=== PATIENT | female | born 1960 | race African-American/Black ===

== ENCOUNTER 2016-08-28 16:28 | Emergency (ER) | payer OTHER ==
[~2016-08-28] VITALS: Ht 175.3 cm; Wt 115.2 kg
[~2016-08-28 16:28] MED LIST: ALBUTEROL SULF8.5 GM INH; AZITHROMYCIN250 MG ORAL; BENADRYL50 MG ORAL; CYCLOBENZAPRINE10 MG ORAL; IBUPROFEN600 MG ORAL; PROMETHAZINE-C118 M1 ORAL
[2016-08-28] MEDS ORDERED: Metoclopramide 10mg/2ml Inj IVP ONE (17:45)
[2016-08-28 18:01] LABS: BASOPHILS % (AUTO) 1.5 % (0.0-2.0); EOSINOPHILS % (AUTO) 1.3 % (0.0-3.0); LYMPHOCYTES % (AUTO) 18.8 % (20.0-45.0); MEAN CORPUSCULAR VOLUME 91 FL (80-99); MEAN PLATELET VOLUME 5.5 FL (6.5-10.1); MONOCYTES % (AUTO) 9.8 % (1.0-10.0); NEUTROPHILS % (AUTO) 68.6 % (45.0-75.0); PLATELET COUNT 194 K/UL (150-450); RED BLOOD COUNT 3.89 M/UL (4.20-5.40); RED CELL DISTRIBUTION WIDTH 11.9 % (11.6-14.8); WHITE BLOOD COUNT 4.4 K/UL (4.8-10.8)
[2016-08-28 18:38] LABS: ALANINE AMINOTRANSFERASE 17 U/L (3-33); ALBUMIN/GLOBULIN RATIO 1.4 (1.0-2.7); ANION GAP 11 (5-15); ASPARTATE AMINO TRANSFERASE 20 U/L (5-40); CALCIUM 8.5 mg/dL (8.6-10.2); CARBON DIOXIDE 25 mEQ/L (20-30); CHLORIDE 106 mEQ/L (98-107); CREATININE 0.7 mg/dL (0.5-0.9); GLOMERULAR FILTRATION RATE > 60 mL/min (>60); HEMOLYSIS 5; POTASSIUM 3.8 mEQ/L (3.4-4.9); SODIUM 142 mEQ/L (135-145); TOTAL PROTEIN 6.6 g/dL (6.6-8.7)
[2016-08-28 19:10] LABS: TROPONIN I < 0.30 ng/mL (<=0.30)
[2016-08-28] MEDS ORDERED: ACETAMINOPHEN-1 EAC1 ORAL (20:00)
[2016-08-28] MEDS ORDERED: Ketorolac 30mg Inj IV ONE (20:00)
[2016-08-28] MEDS ORDERED: VENTOLIN HFA18 GM INH (20:00)
[2016-08-28 20:37] VITALS: BP 119/80
[2016-08-28 20:40] VITALS: BP 119/80
--- NOTE | 2016-08-29 10:11 | Diagnostic Imaging Report ---
Indication: PAIN Technique: Continuous helical CT scanning of the head was performed without intravenous contrast material. Axial and coronal 5 mm sections were generated. Radiation dose was minimized using automated exposure control Dose: Total Dose Length Product - DLP [address] Dose Index - CTDIvol(s) 70.38 mGy. Comparison: None Findings: The ventricular system is normal in size and configuration. There is no shift of midline structures. No abnormal extra-axial fluid collections are noted. There is no evidence of intracerebral bleeding. No other abnormal high or low density areas are noted within the brain. There is minimal scalp soft tissue swelling at the vertex. Impression: Normal CT scan of the head without contrast material. Minimal scalp soft tissue swelling at the vertex, correlate with any history of trauma The CT scanner at [facility] is accredited by the [employer] and the scans are performed using protocols designed to limit radiation exposure to as low as reasonably achievable to attain images of sufficient resolution adequate for diagnostic evaluation.
--- NOTE | 2016-08-29 14:17 | Cardiology Report ---
APPROVED REPORT EKG Measurement Heart [id number] Normal sinus rhythm Low voltage QRS Borderline ECG
--- NOTE | 2016-08-30 08:17 | Diagnostic Imaging Report ---
Indication: PAIN Technique: One view of the chest Comparison: none Findings: Body habitus limits evaluation. Lungs and pleural spaces are grossly clear. Heart size is borderline enlarged. Impression: Borderline cardiomegaly. No acute process
--- NOTE | 2016-08-31 06:59 | Emergency Room Report ---
History of Present Illness General Chief Complaint: Headache Source: Patient Present Illness HPI 56 YO F presents with 2 complaints: 1) Intermittent frontal headache "around eyes" for 2-3 days. Comes/goes. Improved with OTC meds. +history of migraines. Denies assoc fever/chills, neck pain/stiffness, sick contacts, history of SAH, tumor. No pain with EOMI, blurry/change of vision, nausea/vomiting. 2) Cough for 1 month. Non productive. + sick contacts. Denies fever/chills, chest pain, SOB. Denies asthma, smoking. Allergies: Coded Allergies: No Known Allergies (Verified Allergy, Unknown, 01/26/11) Patient History Past Medical History: migraines Past Surgical History: none Pertinent Family History: none Social History: Denies: alcohol use, drug use, smoking Now: No Immunizations: UTD Reviewed Nursing Documentation: PMH: Agreed, PSxH: Agreed Nursing Documentation-PMH Hx Diabetes: Yes Review of Systems All Other Systems: negative except mentioned in HPI Physical Exam Vital Signs Date Time Temp Pulse Resp B/P Pulse Ox O2 Delivery O2 Flow Rate FiO2 08/28/16 17:13 98.2 83 15 124/83 95 Room Air Sp02 EP Interpretation: reviewed, normal General Appearance: normal inspection, well appearing, no apparent distress, alert, GCS 15, non-toxic Head: normocephalic, atraumatic Eyes: bilateral eye EOMI, bilateral eye PERRL ENT: normal ENT inspection, hearing grossly normal, normal voice Neck: normal inspection, full range of motion, supple, no meningismus, no bony tend Respiratory: normal inspection, lungs clear, normal breath sounds, no rhonchi, no respiratory distress, no retraction, no accessory muscle use, no wheezing Cardiovascular #1: regular rate, rhythm, no edema Gastrointestinal: normal inspection, normal bowel sounds, non tender, soft, no guarding, no hernia Genitourinary: no CVA tenderness Musculoskeletal: normal inspection, back normal, normal range of motion, Danielle' s Sign negative Neurologic: normal inspection, alert, oriented x3, responsive, canvas repairer III-XII nml as tested, motor strength/tone normal, speech normal Psychiatric: normal inspection, judgement/insight normal, mood/affect normal Skin: normal inspection, normal color, no rash Medical Decision Making Diagnostic Impression: Primary Impression: Headache Qualified Codes: G44.229 - Chronic tension-type headache, not intractable Additional Impression: Bronchitis ER Course 56 YO F with headache for 2-3 days. Likely migraine vs tension type. Low suspicion for meningitis or SAH given well appearance, fluctuating quality, no focal neuro deficits. VSS. Afebrile. CT head negative for mass. Labs: No leuks. Feels better after Reglan/IVF/Toradol. Cough likely bronchitis. CXR negative for PNA. No fever/leuks. Will Rx with T #3 and inhaler. PMD followup recommended DC home EKG Diagnostic Results Rate: normal Rhythm: NSR ST Segments: no acute changes ASA given to the pt in ED: No Rhythm Strip Diag. Results EP Interpretation: yes Rate: 70 Rhythm: NSR, no PVC's, no ectopy Chest X-Ray Diagnostic Results EP Interpretation: Yes Findings: no consolidation, no effusion, no pneumothorax, no acute cardiopulmonary disease Number of Views: 1 Last Vital Signs Date Time Temp Pulse Resp B/P Pulse Ox O2 Delivery O2 Flow Rate FiO2 08/28/16 20:40 98.4 74 14 119/80 100 Room Air Status: improved Disposition: HOME, SELF-CARE Condition: Improved Scripts Albuterol Sulfate (VENTOLIN HFA) 18 Gm Hfa.aer.ad 2 PUFFS INH EVERY 6 HOURS, #18 GM 0 Refills Prov: CARRIE AMBRIZ M.D. 08/28/16 Acetaminophen With Codeine (T#3) (TYLENOL #3 TAB*) Y Tab 1 TAB ORAL Q8H Y for For Pain, #30 TAB Prov: CARRIE AMBRIZ M.D. 08/28/16 Patient Instructions: Tension Headache, Migraine Headache Additional Instructions: - Take Tylenol #3 as needed for headache/cough at night - Use albuterol inhaler to treat cough during the day - If no improvement in 2-3 days return to ER - Follow up with your primary care doctor for Neurology referral for concern for migraines CARRIE AMBRIZ M.D. Aug 31, 2016 06:59
== END 2016-08-28 20:40 | disposition home or self-care (01) ==
LOC: EMR 17:45
DX: G44.229 Chronic tension-type headache, not intractable (principal); J20.9 Acute bronchitis, unspecified; E11.9 Type 2 diabetes mellitus without complications
CPT/HCPCS: 36415; 70450; 71010; 80053; 84484; 85025; 93005; 96361; 96374; 96375; 99284; J1885; J2765

== ENCOUNTER 2016-10-04 14:56 | Emergency (ER) | payer OTHER ==
[~2016-10-04] VITALS: Ht 172.7 cm; Wt 115.2 kg
[~2016-10-04 14:56] MED LIST changes: +ACETAMINOPHEN-1 EAC1 ORAL; +VENTOLIN HFA18 GM INH
--- NOTE | 2016-10-04 16:52 | Emergency Room Report ---
History of Present Illness General Chief Complaint: Sore Throat Source: Patient Present Illness HPI 56-year-old female presents to emergency Department complaining of sore throat rated as 8/10 in severity in addition to nasal congestion, left ear pain, intermittent headaches while coughing and increase in phlegm x2 days. Patient states she visited a friend at a local ER and believes that she picked up an infection. She denies fevers or chills patient denies nausea vomiting abdominal pain or rashes. denies neck pain or stiffness. pt. reports generalized body aches. Denies CP, Palpitations, LOC, AMS, dizziness, Changes in Vision, Sensation, paresthesias, or a sudden severe headache. Allergies: Coded Allergies: No Known Allergies (Verified Allergy, Unknown, 01/26/11) Patient History Past Medical History: see triage record Past Surgical History: none Pertinent Family History: none Now: No Immunizations: UTD Reviewed Nursing Documentation: PMH: Agreed, PSxH: Agreed Nursing Documentation-PMH Past Medical History: No Stated History Hx Diabetes: Yes Review of Systems All Other Systems: negative except mentioned in HPI Physical Exam Vital Signs Date Time Temp Pulse Resp B/P Pulse Ox O2 Delivery O2 Flow Rate FiO2 10/04/16 15:22 98.4 79 14 112/72 97 Room Air Sp02 EP Interpretation: reviewed, normal General Appearance: no apparent distress, alert, GCS 15, non-toxic Head: normocephalic, atraumatic Eyes: bilateral eye PERRL, bilateral eye normal inspection ENT: hearing grossly normal, normal pharynx, no angioedema, normal voice, TMs + canals normal, uvula midline, moist mucus membranes, nasal congestion - clear rhinorrhea, pharyngeal erythema Neck: full range of motion, no meningismus, no bony tend, supple/symm/no masses Respiratory: chest non-tender, lungs clear, normal breath sounds, no respiratory distress, no accessory muscle use, no wheezing, speaking full sentences Cardiovascular #1: regular rate, rhythm, no edema, normal capillary refill Musculoskeletal: back normal, gait/station normal, normal range of motion, non- tender Neurologic: alert, oriented x3, responsive, motor strength/tone normal, sensory intact, speech normal Psychiatric: judgement/insight normal, memory normal, mood/affect normal, no suicidal/homicidal ideation Skin: normal color, no rash, warm/dry, well hydrated Lymphatic: no adenopathy Medical Decision Making PA Attestation Dr. Mckeon is my supervising Physician whom patient management has been discussed with. Diagnostic Impression: Primary Impression: Upper respiratory infection, viral Additional Impression: Post-nasal drainage ER Course 56-year-old female presents to emergency Department complaining of sore throat rated as 8/10 in severity in addition to nasal congestion, left ear pain, intermittent headaches while coughing and increase in phlegm x2 days. Patient states she visited a friend at a local ER and believes that she picked up an infection. She denies fevers or chills patient denies nausea vomiting abdominal pain or rashes. Ddx considered but are not limited to URI, pneumonia, PE, strep pharyngitis, meningitis. Vital signs: Pt. is afebrile, the remaining VS are WNL H&PE are most consistent with URI- no meningeal signs, oropharynx is not involved, no evidence of bacterial infection at this time. ORDERS: none required at this time, the diagnosis is clinical. ED INTERVENTIONS: -20ml Viscous Lidocaine PO --PT. EDUCATION: Discussed antibiotic resistance with inappropriate prescribing of antibiotics for viral illnesses. Discussed signs and symptoms to indicate viral illness versus bacterial illness. DISCHARGE: At this time pt. is stable for d/c to home. Will provide printed patient care instructions, and any necessary prescriptions. Care plan and follow up instructions have been discussed with the patient prior to discharge. Last Vital Signs Date Time Temp Pulse Resp B/P Pulse Ox O2 Delivery O2 Flow Rate FiO2 10/04/16 15:22 98.4 79 14 112/72 97 Room Air Disposition: HOME, SELF-CARE Condition: Stable Scripts Lidocaine HCl (Lidocaine HCl Viscous) 100 Ml Solution 10 ML PO QID, #120 ML Prov: Ilana Mcdonnell P.A. 10/04/16 Mometasone Furoate (NASONEX) 17 Gm [place].pump 2 SPRAYS NASAL DAILY, #17 GM 0 Refills Prov: Ilana Mcdonnell P.A. 10/04/16 D-Methorphan Hb/Prometh Hcl* (PROMETHAZINE-DM SYRUP*) 118 Ml Syrup 5 ML ORAL Q6H Y for For Cough, #118 ML 0 Refills Prov: Ilana Mcdonnell P.A. 10/04/16 Loratadine (CLARITIN) 10 Mg Capsule 10 MG ORAL DAILY for 14 Days, #14 CAP Prov: Ilana Mcdonnell 10/04/16 Pseudoephedrine Hcl* (NEXAFED*) 30 Mg Tablet 30 MG ORAL Q6H Y for congestion for 5 Days, #20 TAB Prov: Ilana Mcdonnell 10/04/16 Referrals: Ada HERNÁNDEZ,REFERRING (PCP) Patient Instructions: Upper Respiratory Infection, Adult Additional Instructions: Take medications as directed. Follow up with PCP in 3-5 days Return sooner to ED if new symptoms occur, or current symptoms become worse. - Please note that this Emergency Department Report was dictated using UXFLIPtassel maker technology software, occasionally this can lead to erroneous entry secondary to interpretation by the dictation equipment. Ilana Mcdonnell Oct 04, 2016 16:52
[2016-10-04] MEDS ORDERED: PROMETHAZINE-D118 ML ORAL (17:03)
[2016-10-04] MEDS ORDERED: NEXAFED30 MG ORAL (17:03)
[2016-10-04] MEDS ORDERED: NASONEX17 GM NASAL (17:03)
[2016-10-04] MEDS ORDERED: CLARITIN10 M2 ORAL (17:03)
[2016-10-04] MEDS ORDERED: LIDOCAINE VISCO20 ML PO (17:22)
[2016-10-04] MEDS ORDERED: Lidocaine 2% Visc 15ml soln ORAL ONE (17:30)
[2016-10-04 17:45] VITALS: BP 109/69
== END 2016-10-04 17:45 | disposition home or self-care (01) ==
LOC: EMR 16:00
DX: J06.9 Acute upper respiratory infection, unspecified (principal); E11.9 Type 2 diabetes mellitus without complications
CPT/HCPCS: 99284

== ENCOUNTER 2016-12-26 11:53 | Emergency (ER) | payer OTHER ==
[~2016-12-26] VITALS: Ht 172.7 cm; Wt 113.4 kg
[~2016-12-26 11:53] MED LIST changes: +CLARITIN10 M2 ORAL; +LIDOCAINE VISCO20 ML PO; +NASONEX17 GM NASAL; +NEXAFED30 MG ORAL; +PROMETHAZINE-D118 ML ORAL
[2016-12-26 12:25] VITALS: BP 121/83
[2016-12-26] MEDS ORDERED: Fluorescein Strips BOTH EYES ONE (12:45)
[2016-12-26] MEDS ORDERED: Proparacaine 0.5% Opth Soln 15ml BOTH EYES ONE (12:45)
[2016-12-26] MEDS ORDERED: OCUFLOX5 ML OP (13:39)
[2016-12-26] MEDS ORDERED: IBUPROFEN600 MG ORAL (13:39)
[2016-12-26 13:50] VITALS: BP 110/96
--- NOTE | 2016-12-26 21:44 | Emergency Room Report ---
History of Present Illness General Chief Complaint: Eye Problems Source: Patient Present Illness HPI The patient is a 56-year-old female presenting with bilateral eye pain for the past 2 days. She states the pain began after sleeping with contacts in. She describes pain as a burning sensation rated as 10 out of 10. Pain does not radiate. She has noticed crusting of both eyelids in the mornings. She denies green-yellow discharge. She denies changes in vision. She denies other symptoms including nausea, vomiting, fever, chills, dizziness Allergies: Coded Allergies: No Known Allergies (Verified Allergy, Unknown, 01/26/11) Patient History Past Medical History: see triage record Pertinent Family History: none Now: No Reviewed Nursing Documentation: PMH: Agreed, PSxH: Agreed Nursing Documentation-PMH Hx Diabetes: Yes Review of Systems All Other Systems: negative except mentioned in HPI Physical Exam Vital Signs Date Time Temp Pulse Resp B/P Pulse Ox O2 Delivery O2 Flow Rate FiO2 12/26/16 12:16 97.9 82 15 121/83 95 Room Air Sp02 EP Interpretation: reviewed, normal General Appearance: no apparent distress, alert, GCS 15, non-toxic Head: normocephalic, atraumatic Eyes: bilateral eye EOMI, bilateral eye PERRL, bilateral eye Scleral Injection ENT: hearing grossly normal, normal pharynx, no angioedema, normal voice, uvula midline Neck: full range of motion, supple/symm/no masses Musculoskeletal: back normal, gait/station normal, normal range of motion, non- tender Neurologic: alert, oriented x3, responsive, motor strength/tone normal, sensory intact, speech normal Psychiatric: judgement/insight normal, memory normal, mood/affect normal, no suicidal/homicidal ideation Skin: normal color, no rash, warm/dry, well hydrated Lymphatic: no adenopathy Medical Decision Making PA Attestation Dr. Lake is my supervising physician. Patient management was discussed with my supervising physician Diagnostic Impression: Primary Impression: Bacterial conjunctivitis ER Course The patient is a 56-year-old female presenting with bilateral eye pain for the past 2 days Differential diagnoses considered but not limited to corneal abrasion, allergic conjunctivitis, bacterial conjunctivitis, viral conjunctivitis, blepharitis, hordeolum PE: NAD HEENT exam: There is bilateral conjunctival injection with increased tearing. Yellow crusting to medial canthus. PERRL. EOMI. Proparacaine was applied to both eyes and then fluoroscene strip was applied to bottom internal eyelid. UV light was used to assess for increased uptake. None was found. The patient will be discharged home and is to followup with screening specialist as soon as possible. She is given a prescription for ofloxacin. ER precautions given Last Vital Signs Date Time Temp Pulse Resp B/P Pulse Ox O2 Delivery O2 Flow Rate FiO2 12/26/16 13:50 98 18 110/96 96 Room Air 12/26/16 12:25 97.9 Status: improved Disposition: HOME, SELF-CARE Condition: Improved Scripts Ofloxacin (OCUFLOX) 5 Ml Drops 2 DROP OP QID for 7 Days, #5 ML Prov: KEM HUERTA 12/26/16 Ibuprofen* (MOTRIN*) 600 Mg Tablet 600 MG ORAL Q8H Y for For Pain, #30 TAB 0 Refills Prov: KEM HUERTA 12/26/16 Patient Instructions: Bacterial Conjunctivitis Additional Instructions: I discussed my findings with the patient. All questions and concerns have been answered. Treatment and medication compliance have been addressed. I advised the patient that they need to follow up with PMD in 3-5 days. Return to ED if symptoms worsen, new symptoms arise, or if needed for any reason. Patient verbalized understanding of discharge instructions. The patient will follow up with screening specialist as soon as possible as was discussed KEM HUERTA December 26, 2016 21:44
== END 2016-12-26 13:50 | disposition home or self-care (01) ==
LOC: EMR 12:33
DX: H10.9 Unspecified conjunctivitis (principal); B96.89 Other specified bacterial agents as the cause of diseases classified elsewhere; E11.9 Type 2 diabetes mellitus without complications
CPT/HCPCS: 99284

== ENCOUNTER 2017-02-06 19:06 | Emergency (ER) | payer OTHER ==
[~2017-02-06] VITALS: Ht 172.7 cm; Wt 111.1 kg
[~2017-02-06 19:06] MED LIST changes: +OCUFLOX5 ML OP
[2017-02-06] MEDS ORDERED: NKM (19:16)
[2017-02-06 19:36] VITALS: BP 125/86
--- NOTE | 2017-02-06 19:42 | Emergency Room Report ---
History of Present Illness General Chief Complaint: Toothache Source: Patient Present Illness HPI 56 YO Female presents for 10/10 in severity left sided upper jaw pain, swelling tenderness, x 2 days with swelling progressing to the left cheek x 1 day. denies fevers or chills. reports having broken tooth of the upper jaw.Pt states swelling progressed mostly today. denies having a dentist which is why she has been putting off having tooth pulled. Pt states she also has a headache due to the pain swelling in the mouth, pt. describes KELLER as 5/10 in severity progressive and dull/ache. Denies CP, Palpitations, LOC, AMS, dizziness, Changes in Vision, Sensation, paresthesias, or a sudden severe headache. Allergies: Coded Allergies: No Known Allergies (Verified , 02/06/17) Patient History Past Medical History: see triage record Pertinent Family History: none Last Menstrual Period: n/a Now: No Reviewed Nursing Documentation: PMH: Agreed, PSxH: Agreed Nursing Documentation-PMH Past Medical History: No History, Except For Review of Systems All Other Systems: negative except mentioned in HPI Physical Exam Vital Signs Date Time Temp Pulse Resp B/P Pulse Ox O2 Delivery O2 Flow Rate FiO2 02/06/17 19:11 98.6 87 16 125/82 96 Room Air Sp02 EP Interpretation: reviewed, normal General Appearance: no apparent distress, alert, GCS 15, non-toxic Head: normocephalic, atraumatic Eyes: bilateral eye PERRL, bilateral eye normal inspection ENT: hearing grossly normal, normal pharynx, no angioedema, normal voice, TMs + canals normal, uvula midline, moist mucus membranes, other - gum abscess due to palpable fluctuance 1 cm approximated palpated above tooth number 13 in the left upper jaw, there is notable swelling to the adjacent cheek, no stones palpated. Neck: full range of motion, supple/symm/no masses Respiratory: lungs clear, normal breath sounds, speaking full sentences Cardiovascular #1: regular rate, rhythm, no edema Musculoskeletal: back normal, gait/station normal, normal range of motion, non- tender Neurologic: alert, oriented x3, responsive, motor strength/tone normal, sensory intact, speech normal Psychiatric: judgement/insight normal, memory normal, mood/affect normal Skin: normal color, no rash, warm/dry, well hydrated, other - swelling noted to the left upper cheek. Lymphatic: no adenopathy Procedures Incision and Drainage Incision and Drainage : Consent: Verbal Site: left upper gumline Blade Size: 11 Wound Location: other - mouth/ left upper gumline Wound's Depth, Shape: superficial Wound Length (cm): 1 Wound Explored: contaminated - purulence and blood Irrigated w/ Saline (ccs): 500 Anesthesia: other - hurricaine 20% spray Splint Applied?: No Sling Applied?: No Patient Tolerated: Well Complications: None Medical Decision Making PA Attestation Dr. yost is my supervising Physician whom patient management has been discussed with. Diagnostic Impression: Primary Impression: Gum abscess Additional Impression: Dental infection ER Course Pt. presents to the ED c/o : Tooth pain, swelling and tenderness x 2 days Ddx considered but are not limited to:tooth abscess, tooth avulsion, OPERATIONS PROGRAM MANAGER, [place] angina, cellulitis Vital signs: are WNL, pt. is afebrile H&PE are most consistent with: Tooth infection, gum abscess due to palpable fluctuance ORDERS: -[place] PO -Augmentin PO -Hurricaine 20% anesthetic spray ED INTERVENTIONS: - I & D DISCHARGE: At this time pt. is stable for d/c to home. Will provide printed patient care instructions, and any necessary prescriptions. Care plan and follow up instructions have been discussed with the patient prior to discharge. Last Vital Signs Date Time Temp Pulse Resp B/P Pulse Ox O2 Delivery O2 Flow Rate FiO2 02/06/17 19:36 98.6 87 16 125/86 96 Room Air Disposition: HOME, SELF-CARE Condition: Stable Scripts Ibuprofen* (MOTRIN*) 600 Mg Tablet 600 MG ORAL THREE TIMES A DAY, #30 TAB 0 Refills Prov: Ilana Mcdonnell P.A. 02/06/17 Hydrocodone Bit/Acetaminophen 7.5-325* (NORCO 7.5-325*) 1 Each Tablet 1 TAB ORAL Q6H Y for For Pain, #10 TAB 0 Refills Prov: Ilana Mcdonnell P.A. 02/06/17 Amoxicillin/Potassium Clav 875-125* (AUGMENTIN 875-125 TABLET*) 1 Each Tablet 1 TAB ORAL TWICE A DAY for 7 Days, #14 TAB Prov: Ilana Mcdonnell P.A. 02/06/17 Referrals: H JEAN HERNÁNDEZ,REFERRING (PCP) Patient Instructions: Dental Abscess, [id number], Dental Pain Additional Instructions: Take medications as directed. Follow up with a Dentist in 2 days, even if your symptoms have resolved. * * --Please review list of dental clinics, if you do not already have a dentist Return sooner to ED if new symptoms occur, or current symptoms become worse. Do not drink alcohol, drive, or operate heavy machinery while taking [place] as this may cause drowsiness. - Please note that this Emergency Department Report was dictated using [employer] buncher technology software, occasionally this can lead to erroneous entry secondary to interpretation by the dictation equipment. Ilana Mcdonnell Feb 06, 2017 19:42
[2017-02-06] MEDS ORDERED: Hydrogen Peroxide 473ml Bottle TOPIC ONE (20:00)
[2017-02-06] MEDS ORDERED: Hurricaine 20% Spray ORO ONE (20:00)
[2017-02-06] MEDS ORDERED: Norco 7.5mg/325mg tab ORAL ONE (20:00)
[2017-02-06] MEDS ORDERED: Augmentin 875mg Tab ORAL ONE (20:15)
[2017-02-06] MEDS ORDERED: NORCO 7.5-3251 EACH ORAL (20:50)
[2017-02-06] MEDS ORDERED: AUGMENTIN 875-1 EAC1 ORAL (20:50)
[2017-02-06] MEDS ORDERED: IBUPROFEN600 MG ORAL (20:50)
[2017-02-06 21:20] VITALS: BP 131/75
== END 2017-02-06 21:20 | disposition home or self-care (01) ==
LOC: EMR 19:25
DX: K05.219 Aggressive periodontitis, localized, unspecified severity (principal); K04.7 Periapical abscess without sinus
CPT/HCPCS: 99284

== ENCOUNTER 2017-10-18 15:11 | Emergency (ER) | payer OTHER ==
[~2017-10-18] VITALS: Ht 175.3 cm; Wt 113.4 kg
[~2017-10-18 15:11] MED LIST changes: +AUGMENTIN 875-1 EAC1 ORAL; +NKM; +NORCO 7.5-3251 EACH ORAL
--- NOTE | 2017-10-18 15:25 | Emergency Room Report ---
History of Present Illness General Chief Complaint: General Complaint Source: Patient, Medical Record Present Illness HPI 57 yo female patient presents to ER complaining of ingrown fingernail and eye irritation. Reports light sensitivity x1week. Patient reports has prescription for glasses, does not wear glasses; reports wearing contact lenses, not prescription. Reports crusting of eyes in the morning; reports crusting yellow. Reports FB sensation. Denies pain with eye movement. Denies mooney in eyes. Also complains of KELLER, denies nausea, vomiting. Reports symptoms present for 2 weeks, intermittently. Also complains of ingrown nail. Reports nail biting. Reports symptoms since Saturday; reports nail draining pus. Reports TTP. Reports seen by "nail lady" who helped remove some pus; was instructed to come to ER for further treatment. Denies fever, chest pain, SOB, tinnitus, ear pain, vision loss, curtain coming down over eyes. Allergies: Coded Allergies: No Known Allergies (Verified , 02/06/17) Patient History Past Medical History: see triage record Reviewed Nursing Documentation: PMH: Agreed; PSxH: Agreed Nursing Documentation-PMH Past Medical History: No History, Except For Hx Diabetes: Yes Review of Systems All Other Systems: negative except mentioned in HPI Physical Exam Vital Signs Date Time Temp Pulse Resp B/P (MAP) Pulse Ox O2 Delivery O2 Flow Rate FiO2 10/18/17 15:18 98.8 90 18 122/82 95 Room Air 98.8 Sp02 EP Interpretation: reviewed, normal General Appearance: well appearing, no apparent distress, alert, GCS 15, non- toxic Head: normocephalic, atraumatic Eyes: bilateral eye normal inspection, bilateral eye PERRL, bilateral eye fluoroscene uptake - left eye: 3-4mm uptake in 8 o'clock position; right eye: 3- 4mm uptake in 4 o'clock position ENT: hearing grossly normal, normal pharynx, no angioedema, normal voice, TMs + canals normal, uvula midline, moist mucus membranes Neck: full range of motion, no bony tend Respiratory: lungs clear, normal breath sounds, no rhonchi, no respiratory distress, no accessory muscle use, no wheezing, speaking full sentences Cardiovascular #1: regular rate, rhythm, no edema Musculoskeletal: back normal, gait/station normal, normal range of motion, non- tender, other - NVI Neurologic: alert, oriented x3, responsive, motor strength/tone normal, sensory intact Psychiatric: mood/affect normal Skin: other - left hand middle finger lateral nail bed: swelling, TTP, erythema , mild fluctuance, no active drainage, no Lymphatic: no adenopathy Medical Decision Making PA Attestation Dr. Lake is my supervising Physician whom patient management has been discussed with. Diagnostic Impression: Primary Impression: Paronychia Additional Impressions: Bacterial conjunctivitis Cornea abrasion ER Course Pt. presents to the ED c/o eye irritation and finger swelling. Ddx considered but are not limited to allergic conjunctivitis, bacterial conjunctivitis, periorbital cellulitis, glaucoma, URI, sinusitis, paronychia, felon, hangail, herpetic natalee. Vital signs: are WNL, pt. is afebrile Patient has no signs of surrounding cellulitis, no pain with eye movement, does not require imaging at this time. Ordered Bacitracin and Lidocaine ED COURSE: Digital block of finger performed with lidocaine. I&D of paronychia performed. Pus and blood expressed from finger. Patient finger no longer swollen, patient reports decrease in pain symptoms. Sterile dressing and Bacitracin applied to wound following procedure. Patient instructed to keep wound clean and dry and to follow-up with primary care provider in 2 days for wound check. Tonometer used to measure IOP: left eye 21mmHg right 16mmHg. Within normal limits. Low suspicion for glaucoma. VA performed, see nurses note: WNL Fluorescein stain shows increased uptake in each eye, likely secondary to contact lens use. Corneal abrasion bilaterally. Will provide Ocuflox drops for treatment. Patient wears contacts. No conjunctival injection, no crusting. Possible bacterial conjunctivitis will be treated with Ocuflox drops for corneal abrasion treatment. Followup with Ophtho. Followup with optometry at scheduled appointment tomorrow. Patient reports understanding and agreement. DISCHARGE: Rx provided for Augmentin for paronychia Rx provided for Ocufloxacin. Informed patient to apply to both eyes. At this time pt. is stable for d/c to home. Patient is resting comfortably, in no acute distress, nontoxic appearing, talking, smiling and laughing without difficulty. Will provide printed patient care instructions, and any necessary prescriptions. Patient instructed to follow up with glassware verifier and discuss further follow up with ophthalmology and food production associate. Wound check in 2-3 days. Care plan and follow up instructions have been discussed with the patient prior to discharge. Patient questions asked and answered. Patient reports understanding and agreement to treatment plan. ER precautions given. Patient instructed to return to ER immediately for any new or worsening of symptoms including but not limited to vision loss, fever, changes in vision.worsening of pain symptoms, worsening of erythema, red streaking. Last Vital Signs Date Time Temp Pulse Resp B/P (MAP) Pulse Ox O2 Delivery O2 Flow Rate FiO2 10/18/17 15:18 98.8 90 18 122/82 95 Room Air 98.8 Disposition: HOME, SELF-CARE Condition: Stable Scripts Amoxicillin/Potassium Clav 875-125* (AUGMENTIN 875-125 TABLET*) 1 Each Tablet 1 TAB ORAL TWICE A DAY for 7 Days, #14 TAB Prov: Bharath Mailn 10/18/17 Ofloxacin (OCUFLOX) 5 Ml Drops 5 ML OP BID for 7 Days, ML Prov: Bharath Malin 10/18/17 Additional Instructions: Followup with primary care provider in 3 -5 days. Take medications as directed. Patient questions asked and answered. ER precautions given, patient instructed to return to ER immediately for any new or worsening of symptoms. Bharath Malin Oct 18, 2017 15:25
[2017-10-18] MEDS ORDERED: Bacitracin Oint UD TOPIC ONE (15:45)
[2017-10-18] MEDS ORDERED: Lidocaine 1% Plain 30 ml INJ ONE (15:45)
[2017-10-18 15:55] VITALS: BP 122/82
[2017-10-18] MEDS ORDERED: Acetaminophen 500mg (ES) tab ORAL ONE (16:30)
[2017-10-18] MEDS ORDERED: Tetracaine 0.5% Opth 4ml Soln LEFT EYE ONE (16:45)
[2017-10-18] MEDS ORDERED: Fluorescein Strips BOTH EYES ONE (16:45)
[2017-10-18] MEDS ORDERED: OCUFLOX5 ML OP (17:15)
[2017-10-18] MEDS ORDERED: AUGMENTIN 875-1 EAC1 ORAL (17:15)
[2017-10-18 17:59] VITALS: BP 122/82
== END 2017-10-18 18:08 | disposition home or self-care (01) ==
LOC: EMR 16:04
DX: L60.0 Ingrowing nail (principal); H10.9 Unspecified conjunctivitis; B96.89 Other specified bacterial agents as the cause of diseases classified elsewhere; S05.00XA Injury of conjunctiva and corneal abrasion without foreign body, unspecified eye, initial encounter; X58.XXXA Exposure to other specified factors, initial encounter; Y92.9 Unspecified place or not applicable; E11.9 Type 2 diabetes mellitus without complications
CPT/HCPCS: 99284; J2001

== ENCOUNTER 2018-01-22 00:35 | Emergency (ER) | payer SELFPAY ==
[~2018-01-22] VITALS: Ht 172.7 cm; Wt 117.9 kg
[2018-01-22 01:00] VITALS: BP 129/79
[2018-01-22] MEDS ORDERED: Norco 5mg/325mg tab ORAL ONE (01:00)
[2018-01-22] MEDS ORDERED: IBUPROFEN600 MG ORAL (01:32)
[2018-01-22] MEDS ORDERED: HYDROCODON-ACE1 EA15 ORAL (01:32)
--- NOTE | 2018-01-22 01:33 | Emergency Room Report ---
History of Present Illness General Chief Complaint: Upper Extremity Injury Source: Patient Present Illness [facility] This is a 57-year-old female who is right-hand dominant. She presents with chief point of left shoulder pain. Onset for last few days. No trauma. Worse with certain movement. Throbbing in nature. No fever chills. No nausea no vomiting. Patent is 8 out of 10. No chest pain. Allergies: Coded Allergies: No Known Allergies (Verified , 02/06/17) Patient History Past Medical History: see triage record, old chart reviewed, DM Past Surgical History: other Pertinent Family History: none Social History: Denies: smoking Now: No Immunizations: other Reviewed Nursing Documentation: PMH: Agreed; PSxH: Agreed Nursing Documentation-PMH Hx Diabetes: Yes Review of Systems Eye: Denies: eye pain, blurred vision ENT: Denies: ear pain, nose congestion, throat swelling Respiratory: Denies: cough, shortness of breath Cardiovascular: Denies: chest pain, palpitations Gastrointestinal: Denies: abdominal pain, diarrhea, nausea, vomiting Musculoskeletal: Reports: joint pain; Denies: back pain Skin: Denies: rash Neurological: Denies: headache, numbness Endocrine: Denies: increased thirst, increased urine Hematologic/Lymphatic: Denies: easy bruising All Other Systems: negative except mentioned in HPI Physical Exam Vital Signs Date Time Temp Pulse Resp B/P (MAP) Pulse Ox O2 Delivery O2 Flow Rate FiO2 01/22/18 00:39 97.4 63 18 132/80 95 Room Air 97.3 vitals normal Sp02 EP Interpretation: reviewed, normal General Appearance: well appearing, no apparent distress, alert Head: normocephalic, atraumatic Eyes: bilateral eye PERRL, bilateral eye EOMI ENT: hearing grossly normal, normal pharynx Neck: full range of motion, supple, no meningismus Respiratory: chest non-tender, lungs clear, normal breath sounds Cardiovascular #1: regular rate, rhythm, no murmur Gastrointestinal: normal bowel sounds, non tender, no mass, no organomegaly, no bruit, non-distended Musculoskeletal: back normal, gait/station normal, normal range of motion, tender - Diffuse tenderness to the Left Shoulder. Worse with abduction. Sensation normal. No redness. Psychiatric: mood/affect normal Skin: warm/dry Procedures Splinting Splinting : Consent: Verbal Location: Left shoulder Pre-Made Type: Sling Pre-Proc Neuro Vasc Exam: normal Post-Proc Neuro Vasc Exam: normal Patient Tolerated: Well Complications: None Medical Decision Making Diagnostic Impression: Primary Impression: Shoulder impingement syndrome Qualified Codes: M75.42 - Impingement syndrome of left shoulder ER Course Patient presents with shoulder pain. No evidence of any fracture dislocation. No evidence of any septic joint. We'll discharge home. Last Vital Signs Date Time Temp Pulse Resp B/P (MAP) Pulse Ox O2 Delivery O2 Flow Rate FiO2 01/22/18 01:12 97.4 01/22/18 00:39 63 18 132/80 95 Room Air Status: improved Disposition: HOME, SELF-CARE Condition: Stable Scripts Ibuprofen* (MOTRIN*) 600 Mg Tablet 600 MG ORAL THREE TIMES A DAY, #30 TAB 0 Refills Prov: JERRY VALLES M.D. 01/22/18 Hydrocodone/Acetaminophen 5-325* (HYDROCODONE/ACETAMINOPHEN 5-325*) 1 Each Tablet 1 TAB ORAL Q6H PRN for For Pain, #15 TAB 0 Refills Prov: JERRY VALLES M.D. 01/22/18 Referrals: NON PHYSICIAN (PCP) Additional Instructions: follow-up your doctor in 7 days. If not better, you may need an MRI. Return if worse. JERRY VALLES M.D. Jan 22, 2018 01:33
[2018-01-22 01:45] VITALS: BP 132/80
--- NOTE | 2018-01-22 10:35 | Diagnostic Imaging Report ---
Indication: left shoulder pain Findings: 3 views of the left shoulder were obtained. Alignment of the left shoulder is normal. No acute fracture is identified. Soft tissues are unremarkable. Impression: No acute injury
== END 2018-01-22 01:45 | disposition home or self-care (01) ==
LOC: EMR 00:57
DX: M75.42 Impingement syndrome of left shoulder (principal); E11.9 Type 2 diabetes mellitus without complications
CPT/HCPCS: 99284

== ENCOUNTER 2018-09-17 17:59 | Emergency (ER) | payer MEDICAID ==
[~2018-09-17] VITALS: Ht 175.3 cm; Wt 133.8 kg
[~2018-09-17 17:59] MED LIST changes: +HYDROCODON-ACE1 EA15 ORAL
[2018-09-17 18:39] VITALS: BP 140/90
--- NOTE | 2018-09-17 18:39 | NUR ---
ED Nurse Note: Pt came into the Er for URI x 3 weeks. Pt is complaining of 10/10 sore throat. A + O x4. Ambulatory. Skin warm to touch.
--- NOTE | 2018-09-17 19:01 | NUR ---
HAND-OFF: Report given to Isacc Pinzon RN.
[2018-09-17] MEDS ORDERED: Promethazine/Codeine 5ml UD ORAL ONE (19:15)
[2018-09-17] MEDS ORDERED: Albuterol/Ipratropium 3ml neb HHN ONE (19:15)
--- NOTE | 2018-09-17 20:13 | Emergency Room Report ---
History of Present Illness General Chief Complaint: Upper Respiratory Illness Source: Medical Record Present Illness HPI 58-year-old female presents to the emergency department complaining of persistent cough, 5 out of 10 in severity sore throat, nasal congestion and body aches 2 weeks. Patient denies fevers or chills. Denies ear pain, high fevers, lethargy, neck pain/stiffness, irritability, photophobia dehydration, N/ V/D. Denies Cp, Palpitations, Dyspnea, LOC, AMS, seizures, paresthesias, or changes in Hearing or vision, no Sudden severe KELLER. Denies hx of smoking, asthma or COPD. Reports changes to her voice. States cough is worse at night and in the AM. Reports green-yellow mucus. OTC cough and cold medications are not providing relief. Denies cardiac hx or LE edema. Allergies: Coded Allergies: No Known Allergies (Verified , 02/06/17) Patient History Past Medical History: see triage record Past Surgical History: none Pertinent Family History: none Last Menstrual Period: menopause Immunizations: UTD Reviewed Nursing Documentation: PMH: Agreed; PSxH: Agreed Nursing Documentation-PMH Past Medical History: No History, Except For Hx Diabetes: Yes Review of Systems All Other Systems: negative except mentioned in HPI Physical Exam Vital Signs Date Time Temp Pulse Resp B/P (MAP) Pulse Ox O2 Delivery O2 Flow Rate FiO2 09/17/18 18:05 98.1 106 18 146/94 95 Room Air 09/17/18 18:39 97 Sp02 EP Interpretation: reviewed, normal General Appearance: no apparent distress, alert, GCS 15, non-toxic Head: normocephalic, atraumatic Eyes: bilateral eye normal inspection, bilateral eye PERRL ENT: hearing grossly normal, normal pharynx, normal voice, uvula midline, moist mucus membranes, nasal congestion, pharyngeal erythema, other - no tonsillar swelling or exudates noted. Neck: full range of motion, no meningismus Respiratory: chest non-tender, lungs clear, normal breath sounds, no respiratory distress, no accessory muscle use, speaking full sentences, wheezing - expiratory wheezes bilaterally - mild Cardiovascular #1: regular rate, rhythm, no edema, normal capillary refill, tachycardia Gastrointestinal: non tender, soft Musculoskeletal: back normal, gait/station normal, normal range of motion, non- tender Neurologic: alert, oriented x3, responsive, motor strength/tone normal, sensory intact, normal gait, speech normal, grossly normal Psychiatric: judgement/insight normal Skin: normal color, no rash, warm/dry, well hydrated Lymphatic: no adenopathy Medical Decision Making PA Attestation Dr. Gastelum is my supervising Physician whom patient management has been discussed with. Diagnostic Impression: Primary Impression: Acute bronchitis with symptoms > 10 days ER Course 58-year-old female presents to the emergency department complaining of persistent cough, 5 out of 10 in severity sore throat, nasal congestion and body aches 2 weeks. Patient denies fevers or chills. Denies ear pain, high fevers, lethargy, neck pain/stiffness, irritability, photophobia dehydration, N/ V/D. Denies Cp, Palpitations, Dyspnea, LOC, AMS, seizures, paresthesias, or changes in Hearing or vision, no Sudden severe KELLER. Denies hx of smoking, asthma or COPD. Reports changes to her voice. States cough is worse at night and in the AM. Reports green-yellow mucus. OTC cough and cold medications are not providing relief. Denies cardiac hx or LE edema. Ddx considered but are not limited to URI, pneumonia, PE, strep pharyngitis, meningitis. Vital signs: Pt.is afebrile VS are WNL H&PE are most consistent with bronchitis ORDERS: -CXR: unremarkable ED INTERVENTIONS: -CATHERINE NEB x 1 --- pt. reports significant improvement upon reassessment. -Cough Syrup -Prednisone -Tylenol PO -I do not identify an emergent condition at this time. With current presentation , pt. is stable for close outpatient follow up and conservative treatment. D/ w pt. to return promptly to ED with worsening or new symptoms.- Pt. verbalizes' understanding and agreement with proposed treatment plan.proposed treatment plan. DISCHARGE: At this time pt. is stable for d/c to home. Will provide printed patient care instructions, and any necessary prescriptions. Care plan and follow up instructions have been discussed with the patient prior to discharge. Chest X-Ray Diagnostic Results Chest X-Ray Diagnostic Results : Chest X-Ray Ordered: Yes # of Views/Limited/Complete: 1 View Indication: Other - Persistent cough >10 days EP Interpretation: Yes PA Xray: Interpretation reviewed, by supervising MD, and agrees with findings. Interpretation: no consolidation, no effusion, no pneumothorax, no acute cardiopulmonary disease Impression: No acute disease Electronically Signed by: Ilana Mcdonnell PA-C Last Vital Signs Date Time Temp Pulse Resp B/P (MAP) Pulse Ox O2 Delivery O2 Flow Rate FiO2 09/17/18 19:51 82 20 97 Room Air 21 09/17/18 18:39 98.1 140/90 Status: improved Disposition: HOME, SELF-CARE Condition: Stable Scripts Guaifenesin (Guaifenesin) 1,200 Mg Tab.er.12h 1200 MG PO Q12HR for 7 Days, #14 TAB Prov: Ilana Mcdonnell 09/17/18 Cetirizine Hcl/Pseudoephedrine (ZYRTEC-D TABLET) 1 Each Tab.er.12h 1 EACH ORAL Q12HR, #20 TAB Prov: Ilana Mcdonnell 09/17/18 Codeine/Promethazine Hcl* (PROMETHAZINE-CODEINE SYRUP*) 118 Ml Syrup 5 ML ORAL Q6H PRN for For Cough, #120 ML 0 Refills Prov: Ilana Mcdonnell 09/17/18 Prednisone* (PREDNISONE*) 20 Mg Tablet 40 MG ORAL DAILY for 5 Days, #10 TAB Prov: Ilana Mcdonnell 09/17/18 Albuterol Sulfate* (ALBUTEROL SULFATE MDI*) 8.5 Gm Hfa.aer.ad 2 PUFF INH Q4H, #1 INH 0 Refills Prov: Ilana Mcdonnell 09/17/18 Departure Forms: Return to Work Return to Work Date: Sep 21, 2018 Work Restrictions: None Other Restrictions: May return Sooner if Symptoms have resolved. Return to Full Activity: Sep 22, 2018 Patient Instructions: Acute Bronchitis, [id number] Additional Instructions: Take medications as directed. Follow up with a Primary Care Provider in 3-5 days, even if your symptoms have resolved. -- If symptoms persist may require Stadium Attendant Evaluation as well. Return sooner to ED if new symptoms occur, or current symptoms become worse. Do not drink alcohol, drive, or operate heavy machinery while taking Cough Syrup as this may cause drowsiness. - Please note that this Emergency Department Report was dictated using [employer] support technology software, occasionally this can lead to erroneous entry secondary to interpretation by the dictation equipment. Ilana Mcdonnell Sep 17, 2018 20:13
[2018-09-17] MEDS ORDERED: PROMETHAZINE-C118 M1 ORAL (20:29)
[2018-09-17] MEDS ORDERED: PREDNISONE20 MG ORAL (20:29)
[2018-09-17] MEDS ORDERED: GUAIFENESIN1200 MG PO (20:29)
[2018-09-17] MEDS ORDERED: ALBUTEROL SULF8.5 GM INH (20:29)
[2018-09-17] MEDS ORDERED: ZYRTEC-D TABLE1 EACH ORAL (20:29)
[2018-09-17 20:45] VITALS: BP 140/90
--- NOTE | 2018-09-17 20:45 | NUR ---
ED Nurse Note: Patient cleared cleared for discharge per ERMD. AO4. NAD. VSS. Accompanied by family member. Patient given prescriptions and discharge instructions; patient verbalized understanding. ID removed. Patient ambulated steady out of ED with all belongings.
--- NOTE | 2018-09-18 09:22 | Diagnostic Imaging Report ---
Indication: Chest pain Technique: One view of the chest Comparison: 08/28/2016 Findings: Body habitus limits evaluation. The lungs and pleural spaces are clear. The heart size is normal. There is no significant interim change Impression: Negative
== END 2018-09-17 20:45 | disposition home or self-care (01) ==
LOC: EMR 18:55
DX: J20.9 Acute bronchitis, unspecified (principal); E11.9 Type 2 diabetes mellitus without complications
CPT/HCPCS: 71045; 94640; 99284; J7512; J7620